=== PATIENT | female | born 1975 | race Caucasian/White ===

== ENCOUNTER 2017-10-18 15:35 | Emergency (ER) | payer OTHER | END 2017-10-18 18:02 | disposition other institution (70) | LOC: ED 15:35 | DX: Z02.89 Encounter for other administrative examinations (principal); S60.221A Contusion of right hand, initial encounter; S20.211A Contusion of right front wall of thorax, initial encounter; W01.0XXA Fall on same level from slipping, tripping and stumbling without subsequent striking against object, initial encounter; Y93.89 Activity, other specified; Y99.8 Other external cause status; Y92.89 Other specified places as the place of occurrence of the external cause ==

== ENCOUNTER 2017-10-18 15:35 | Emergency (ER) | payer SELFPAY ==
[2017-10-18 15:42] VITALS: BP 126/67
== END 2017-10-18 18:02 | disposition other institution (70) ==
LOC: ED 15:35
DX: S60.221A Contusion of right hand, initial encounter (principal); S20.211A Contusion of right front wall of thorax, initial encounter; W01.0XXA Fall on same level from slipping, tripping and stumbling without subsequent striking against object, initial encounter; Y93.89 Activity, other specified; Y99.8 Other external cause status; Y92.89 Other specified places as the place of occurrence of the external cause